=== PATIENT | female | born 1995 | race Caucasian/White ===

== ENCOUNTER 2021-03-24 07:37 | Inpatient (IN) | payer OTHER ==
[~2021-03-24] VITALS: Ht 160 cm; Wt 83.6 kg
[2021-03-24] MEDS ORDERED: FENTANYL PF 100 MCG/2ML IVPush PRN (08:00)
[2021-03-24] MEDS ORDERED: D5%-LACTATED RINGERS 1,000 ML IV SCH (08:00)
[2021-03-24] MEDS ORDERED: FENTANYL PF 100 MCG/2ML IV PRN (08:00)
[2021-03-24] MEDS ORDERED: LACTATED RINGERS 1,000 ML IV SCH ×2 (08:00→12:00)
[2021-03-24] MEDS ORDERED: OXYTOCIN 30U/ 0.9% NaCL 500ML 500 ML IV ONE (08:00)
[2021-03-24] MEDS ORDERED: TERBUTALINE 1 MG/ML, 1ML IVPush PRN (08:00)
[2021-03-24] MEDS ORDERED: CALCIUM CARBONATE 500 MG TAB.CHEW PO PRN (08:00)
[2021-03-24] MEDS ORDERED: ONDANSETRON 2MG/ML, 2ML IVPush PRN ×2 (08:00→12:00)
[2021-03-24] MEDS ORDERED: TERBUTALINE 1 MG/ML, 1ML SQ PRN (08:00)
[2021-03-24] MEDS ORDERED: OXYTOCIN 30U/ 0.9% NaCL 500ML 500 ML IV PRN (08:00)
[2021-03-24] MEDS ORDERED: NEWBORN KIT ONE (08:21)
[2021-03-24 08:23] LABS: BASOPHILS % (AUTO) 1 % (0-1); EOSINOPHILS % (AUTO) 0 % (1-7); LYMPHOCYTES % (AUTO) 17 % (22-44); MEAN CORPUSCULAR HEMOGLOBIN 24.8 pg (27.0-34.8); MEAN CORPUSCULAR HGB CONC 32.5 g/dL (32.4-35.8); MEAN PLATELET VOLUME 7.7 fL (7.4-10.4); MONOCYTES % (AUTO) 5 % (2-9); NEUTROPHILS % (AUTO) 78 % (42-75); PLATELET COUNT 245 x10^3/uL (130-400); RED BLOOD COUNT 4.95 x10^6/uL (3.82-5.3); RED CELL DISTRIBUTION WIDTH 15.4 % (9.6-15.2)
[2021-03-24 08:24] LABS: MD NO
[2021-03-24] MEDS ORDERED: BUPIVACAINE 0.25% ONE (09:30)
[2021-03-24] MEDS ORDERED: FENTANYL/BUPIV./NS/PF 250 ML EPIDCONT ONE (09:30)
[2021-03-24] MEDS ORDERED: DIPHENHYDRAMINE 50 MG/ML, 1ML IVPush PRN (12:00)
[2021-03-24] MEDS ORDERED: EPHEDRINE 50 MG/ML, 1ML IVPush PRN (12:00)
[2021-03-24] MEDS ORDERED: LACTATED RINGERS 1,000 ML IVBOLUS PRN (12:00)
[2021-03-24] MEDS ORDERED: FENTANYL/BUPIV./NS/PF 250 ML EPIDCONT SCH (12:00)
[2021-03-24] MEDS ORDERED: NALOXONE 0.4 MG/ML, 1ML IVPush PRN (12:00)
[2021-03-24] MEDS ORDERED: RHOGAM FROM BLOOD BANK 1 NOTE EA IM/IV ONE (12:30)
[2021-03-24] MEDS ORDERED: DIPH,PERTUSS(ACELL),TET VAC/PF NC IM-VACC PRN (12:30)
[2021-03-24] MEDS ORDERED: DOCUSATE 100 MG CAPSULE PO PRN (12:30)
[2021-03-24] MEDS ORDERED: MISOPROSTOL 200 MCG TABLET PR PRN (12:30)
[2021-03-24] MEDS: OXYTOCIN 30U/ 0.9% NaCL 500ML 500 ML IV SCH ×2 (12:30→22:30)
[2021-03-24] MEDS ORDERED: MAGNESIUM HYDROXIDE 8%, 30ML UDC PO PRN (12:30)
[2021-03-24] MEDS ORDERED: ONDANSETRON 2MG/ML, 2ML IV PRN (12:30)
[2021-03-24] MEDS ORDERED: SIMETHICONE 80 MG CHEW TAB PO PRN (12:30)
[2021-03-24] MEDS ORDERED: OXYcodone/APAP 5/325MG TABLET PO PRN ×2 (12:30)
[2021-03-24] MEDS ORDERED: ACETAMINOPHEN 325 MG TABLET PO PRN ×2 (12:30)
[2021-03-24] MEDS ORDERED: ERYTHROMYCIN OPHTH 0.5%, 1GM EACHEYE ONE (15:30)
[2021-03-24] MEDS ORDERED: PHYTONADIONE 1 MG/0.5ML IM ONE (15:30)
[2021-03-24] MEDS ORDERED: DEXTROSE 47%, 15GM GEL BC PRN (15:30)
[2021-03-24] MEDS ORDERED: HEPATITIS B PED VACCINE/PF 5MCG/0.5ML IM-VACC PRN (15:30)
[2021-03-24 16:35] VITALS: BP 105/75
[2021-03-24 19:51] VITALS: BP 96/66
[2021-03-24 22:33] LABS: BASOPHILS % (AUTO) 0 % (0-1); EOSINOPHILS % (AUTO) 0 % (1-7); LYMPHOCYTES % (AUTO) 14 % (22-44); MD NO; MEAN CORPUSCULAR HEMOGLOBIN 25.3 pg (27.0-34.8); MEAN CORPUSCULAR HGB CONC 33.2 g/dL (32.4-35.8); MEAN PLATELET VOLUME 7.7 fL (7.4-10.4); MONOCYTES % (AUTO) 5 % (2-9); NEUTROPHILS % (AUTO) 80 % (42-75); PLATELET COUNT 240 x10^3/uL (130-400); RED BLOOD COUNT 4.06 x10^6/uL (3.82-5.3); RED CELL DISTRIBUTION WIDTH 15.5 % (9.6-15.2)
[2021-03-25] MEDS: IBUPROFEN 600 MG TABLET PO PRN ×3 (00:16→11:54)
[2021-03-25 00:31] VITALS: BP 114/73
[2021-03-25 04:12] VITALS: BP 96/65
[2021-03-25 08:00] VITALS: BP 106/64
[2021-03-25] MEDS: OXYTOCIN 30U/ 0.9% NaCL 500ML 500 ML IV SCH (08:30)
[2021-03-25] MEDS ORDERED: PRENATAL VIT/IRON/FA 1 EACH TABLET PO SCH (09:00)
[2021-03-25 12:43] VITALS: BP 112/72
[2021-03-25] MEDS ORDERED: IBUP-1222 PO (13:38)
== END 2021-03-25 14:20 | disposition home or self-care (01) | DRG 807 ==
LOC: LDIP 07:48 → 2NW 16:51
PROVIDERS: ADMIT Obstetrics & Gynecology; ATTEND Obstetrics & Gynecology
PROC: 10E0XZZ Delivery of Products of Conception, External Approach (ICD-10-PCS; principal; 2021-03-24)
PROC: 0KQM0ZZ Repair Perineum Muscle, Open Approach (ICD-10-PCS; 2021-03-24)
PROC: 10907ZC Drainage of Amniotic Fluid, Therapeutic from Products of Conception, Via Natural or Artificial Opening (ICD-10-PCS; 2021-03-24)
PROC: 3E033VJ Introduction of Other Hormone into Peripheral Vein, Percutaneous Approach (ICD-10-PCS; 2021-03-24)
PROC: 3E0R3BZ Introduction of Anesthetic Agent into Spinal Canal, Percutaneous Approach (ICD-10-PCS; 2021-03-24)
PROC: 00HU33Z Insertion of Infusion Device into Spinal Canal, Percutaneous Approach (ICD-10-PCS; 2021-03-24)
DX: O70.1 Second degree perineal laceration during delivery (principal); Z37.0 Single live birth; Z3A.39 39 weeks gestation of pregnancy; Z20.822 Contact with and (suspected) exposure to COVID-19
CPT/HCPCS: 36415; 85025; 86592; 86850; 86900; 87635; G0378; J2405; J2590; J3010